=== PATIENT | female | born 1990 | race Caucasian/White ===

== ENCOUNTER 2016-05-26 13:11 | Outpatient (CLI) | payer OTHER ==
[~2016-05-26] VITALS: Ht 165.1 cm; Wt 67.3 kg
[2016-05-26] MEDS ORDERED: LACTATED RINGER'S 1000ML 500 ML IV ONE (13:37)
[2016-05-26] MEDS ORDERED: ACETAMINOPHEN 325 MG TAB PO PRN (13:45)
[2016-05-26] MEDS ORDERED: ONDANSETRON INJ 2 MG/ML 2 ML VIAL IV PRN (13:45)
[2016-05-26 13:59] LABS: URINE APPEARANCE CLOUDY (CLEAR); URINE BILIRUBIN NEG (NEG); URINE COLOR YELLOW; URINE EPITHELIAL CELL AUTO >30 /lpf (0-5); URINE NITRITE NEG (NEG); URINE PH 5.5 (4.5-7.5); URINE SPECIFIC GRAVITY 1.018 (1.000-1.030); UROBILINOGEN NEG (NEG); ZZUR CULT IF INDIC CLEAN CATCH YES
[2016-05-26] MEDS ORDERED: PATIENT'S HEIGHT AND/OR WEIGHT NEEDED SCH (14:00)
[2016-05-26 14:04] LABS: MANUAL MICROSCOPIC REQUIRED? NO; REVIEW REQ? YES
[2016-05-26 14:05] LABS: BASO % 0.1 %; BASO ABS # 0.01 K/uL (0-0.2); COMPLETE YES; EOS % 0.2 %; HEMATOCRIT 37.4 % (37-47); IG% 0.5 %; LYMPH % 6.7 %; LYMPH ABS # 0.86 K/uL (1.2-3.4); MEAN CELL VOLUME 92.6 fL (80-100); MEAN CORPUSCULAR HEMOGLOBIN 32.7 pg (25-34); MEAN CORPUSCULAR HGB CONC 35.3 g/dl (32-36); MEAN PLATELET VOLUME 11.6 fL (7.4-10.4); MONO % 6.3 %; NEUT % 86.2 %; PLATELET COUNT 179 K/uL (130-400); RED BLOOD COUNT 4.04 M/uL (4.2-5.4); WHITE BLOOD COUNT 12.77 K/uL (4.8-10.8)
[2016-05-26] MEDS: LACTATED RINGER'S 1000ML 1,000 ML IV SCH ×2 (14:12→16:28)
[2016-05-26 14:28] VITALS: BMI 24.7
[2016-05-26] MEDS ORDERED: METRONIDAZOLE 250 MG TAB PO SCH (14:30)
[2016-05-26] MEDS ORDERED: FLUCONAZOLE 100 MG TAB PO ONE (14:30)
[2016-05-26] MEDS ORDERED: ASPI1CHW12 (14:33)
[2016-05-26] MEDS ORDERED: PRENTAB26 PO (14:33)
[2016-05-26 14:37] LABS: CALCIUM 8.3 mg/dl (8.5-10.1); CREATININE 0.59 mg/dl (0.60-1.20); POTASSIUM 3.4 mmol/L (3.5-5.1)
[2016-05-26 14:39] LABS: ALB/GLOB RATIO 0.8 (0.9-2)
[2016-05-26 15:55] VITALS: Ht 165.1 cm; Wt 67.3 kg
--- NOTE | 2016-05-26 15:59 | DIAGNOSTIC IMAGING REPORT ---
Limited ultrasound LIMITED (US) CLINICAL HISTORY: Cervical length maternal cervical length TECHNIQUE: Ultrasound COMPARISON STUDY: None FINDINGS: 20 viable intrauterine . heart rate is identified for both fetuses. Placenta is seen at the fundal and right lateral aspect of the uterus. Estimated gestational age is 21 weeks 4 days. Maternal cervical length is 2.1 cm. IMPRESSION: 1. Twin, viable intrauterine . 2. Maternal cervical length 2.1 cm with cervix considered closed. Electronically signed by: Teo Pollard M.D. 05/26/2016 3:58 PM Dictated Date/Time: 05/26/2016 3:51 PM
[2016-05-26] MEDS ORDERED: MTR250 PO (17:47)
--- NOTE | 2016-05-26 17:49 | Discharge Instructions ---
Discharge Instructions Admission Reason for Admission: Check Pre-Term Labor Discharge Discharge Diagnosis / Problem: Coles/ Di twins, short cervix, vaginitis, suspected UTI Discharge Goals Goal(s): Continuing OB care Activity Recommendations Activity Limitations: as noted below Lifting Limitations: no more than 10 pounds Exercise/Sports Limitations: until after follow-up appointment May Resume Sexual Activity: after follow-up appointment Shower/Bathe: no limitations Driving or Machine Use: ACTIVITY RECOMMENDATIONS: See Labor Sheet. SPECIAL CARE INSTRUCTIONS: Call Doctor if: * Regular contractions every 5 minutes or greater than 4 contractions in one hour. * Bleeding * Water breaks or is leaking * Decreased movement * Fever >100.4 degrees F * Pain not relieved by routine measures or pain medication ordered. FOLLOW UP VISIT: Return to Labor and Delivery on for /call for appointment time . Follow-up Visit with: When: . Current Hospital Diet Patient's current hospital diet: Regular Diet Discharge Diet Recommended Diet: Regular Diet Pending Studies Studies pending at discharge: yes (URINE CULTURE, CALL TOMORROW FOR RESULTS) List of pending studies: Urine culture Medical Emergencies . Who to Call and When: Medical Emergencies: If at any time you feel your situation is an emergency, please call 911 immediately. . Non-Emergent Contact Non-Emergency issues call your: Surgeon Call Non-Emergent contact if: temperature is above 100.5, your pain is not controlled, your pain is worsening, you have any medication questions . . "Provider Documentation" section prepared by Saman De La O. VTE Core Measure Inpt VTE Proph given/why not?: Treatment not indicated
[2016-09-07] MEDS ORDERED: MTR600X PO (10:04)
[2016-09-07] MEDS ORDERED: CLC100 PO (10:04)
[2016-09-07] MEDS ORDERED: OXYC-57 PO (10:04)
[2016-09-07] MEDS ORDERED: LBT200 PO (10:04)
== END 2016-05-26 18:11 | disposition home or self-care (01) ==
LOC: C.OPB 13:11 → C.LD 13:11 → C.OPB 18:11
PROVIDERS: ATTEND Obstetrics & Gynecology
DX: O23.592 Infection of other part of genital tract in pregnancy, second trimester (principal); O34.42 Maternal care for other abnormalities of cervix, second trimester; O30.032 Twin pregnancy, monochorionic/diamniotic, second trimester; Z3A.21 21 weeks gestation of pregnancy

== ENCOUNTER 2016-05-31 13:48 | Outpatient (CLI) | payer OTHER ==
[~2016-05-31 13:48] MED LIST: ASPI1CHW12; MTR250 PO; PRENTAB26 PO
[2016-05-31] MEDS ORDERED: LACTATED RINGER'S 1000ML 500 ML IV ONE (14:09)
[2016-05-31] MEDS ORDERED: LACTATED RINGER'S 1000ML 1,000 ML IV SCH (14:09)
== END 2016-05-31 15:50 | disposition home or self-care (01) ==
LOC: C.LD 13:48 → C.OPB 13:48
PROVIDERS: ATTEND Obstetrics & Gynecology
DX: O62.9 Abnormality of forces of labor, unspecified (principal); O30.032 Twin pregnancy, monochorionic/diamniotic, second trimester; Z3A.21 21 weeks gestation of pregnancy

== ENCOUNTER 2016-07-07 13:05 | Outpatient (CLI) | payer OTHER ==
[~2016-07-07] VITALS: Ht 165.1 cm; Wt 73.6 kg
[2016-07-07 15:43] VITALS: Ht 165.1 cm; Wt 73.6 kg
--- NOTE | 2016-07-07 16:12 | Discharge Instructions ---
Discharge Instructions Date of Service Jul 07, 2016. Admission Reason for Admission: R/O Pre Term Labor Discharge Discharge Diagnosis / Problem: Twin preganncy Discharge Goals Goal(s): Continuing OB care Activity Recommendations Activity Limitations: as noted below Lifting Limitations: gradually increase as tolerated ACTIVITY RECOMMENDATIONS: See Labor Sheet. SPECIAL CARE INSTRUCTIONS: Call Doctor if: * Regular contractions every 5 minutes or greater than contractions in one hour. * Bleeding * Water breaks or is leaking * Decreased movement * Fever >100.4 degrees F * Pain not relieved by routine measures or pain medication ordered. FOLLOW UP VISIT: Return to Labor and Delivery on for /call for appointment time . Follow-up Visit with: When: . Current Hospital Diet Patient's current hospital diet: Regular OB Diet Discharge Diet Recommended Diet: Regular Diet Pending Studies Studies pending at discharge: no Medical Emergencies . Who to Call and When: Medical Emergencies: If at any time you feel your situation is an emergency, please call 911 immediately. . Non-Emergent Contact Non-Emergency issues call your: Specialist . . "Provider Documentation" section prepared by Elan Isaacs. VTE Core Measure Inpt VTE Proph given/why not?: Treatment not indicated
--- NOTE | 2016-07-07 16:17 | Progress Note ---
Progress Note Date of Service Jul 07, 2016. Progress Note Pt is with [place]-Di Twins seen in offe this Am and examined for PTL she was monitored for ctx and pelvic exam was ft/50% effaced Dr Hinojosa spoke to M and recommendation was as ff 1.L&D for prolonged monitoring 2 Recheck cervical exam in 2 hrs 3.D/C home if no change Pt was monitored, No cervical exam change, no ctx seen on [place] and FFN was negative Pt disch home with instructions
== END 2016-07-07 15:55 | disposition home or self-care (01) ==
LOC: UNDOADMIN 13:05 → C.LD 13:05 → C.OPB 13:05 → EDSTATUS 13:25 → C.OPB 15:55
PROVIDERS: ATTEND Obstetrics & Gynecology
DX: O60.02 Preterm labor without delivery, second trimester (principal); O30.032 Twin pregnancy, monochorionic/diamniotic, second trimester; Z3A.27 27 weeks gestation of pregnancy

== ENCOUNTER 2016-09-03 09:32 | Inpatient (IN) | payer OTHER ==
[2016-09-03] VITALS (9 sets, daily range): BP systolic 137–158; BP diastolic 84–104; PULSE 69–89; TEMP 36.4–36.8; O2SAT 95–97; Ht 165.1 cm; Wt 78.0 kg
[~2016-09-03] VITALS: Ht 165.1 cm; Wt 78.0 kg
[2016-09-03] MEDS ORDERED: LACTATED RINGER'S 1000ML 1,000 ML IV SCH (10:34)
[2016-09-03 10:37] LABS: ALT/SGPT 17 U/L (12-78); AST/SGOT 20 U/L (15-37); BLOOD UREA NITROGEN 11 mg/dl (7-18); BUN/CREATININE RATIO 14.6 (10-20); CALCIUM 8.4 mg/dl (8.5-10.1); CARBON DIOXIDE 18 mmol/L (21-32); CHLORIDE 110 mmol/L (98-107); CREATININE 0.74 mg/dl (0.60-1.20); GLUCOSE 79 mg/dl (70-99); POTASSIUM 3.5 mmol/L (3.5-5.1); SODIUM 140 mmol/L (136-145)
[2016-09-03 10:40] LABS: ALB/GLOB RATIO 0.6 (0.9-2); ALKALINE PHOSPHATASE 190 U/L (45-117)
[2016-09-03] MEDS ORDERED: CITRIC ACID/SODIUM CITRATE 15 ML UDC PO ONE (10:45)
[2016-09-03] MEDS ORDERED: PRENTAB26 PO (10:54)
[2016-09-03 10:56] LABS: HEMATOCRIT 39.9 % (37-47); MEAN CORPUSCULAR HEMOGLOBIN 32.6 pg (25-34); MEAN CORPUSCULAR HGB CONC 34.3 g/dl (32-36); MEAN PLATELET VOLUME 13.3 fL (7.4-10.4); PLATELET COUNT 137 K/uL (130-400); PLT ESTIMATE DECREASED; WHITE BLOOD COUNT 9.17 K/uL (4.8-10.8)
[2016-09-03] MEDS ORDERED: CEFOXITIN IV 2,000 MG in DEXTROSE 5% 50ML 50 ML IV SCH (11:00)
[2016-09-03 11:33] LABS: INR 0.9 (0.9-1.1); PROTHROMBIN TIME (PATIENT) 9.3 SECONDS (9.0-12.0)
--- NOTE | 2016-09-03 11:57 | HISTORY & PHYSICAL EXAMINATION ---
DATE OF ADMISSION: 09/03/2016 HISTORY OF PRESENT ILLNESS: This is a 26-year-old G3, P2, due date 10/02/2016 making that 35 weeks and 6 days today, the patient has had twin , monochorionic diamniotic. She has been seen and followed by maternal medicine through the office. Her had been complicated by a diagnosis of mild preeclampsia starting at 33 weeks. 24hr urine has been over 300mg The patient received betamethasone series on 08/08/2016 and 08/09/2016. Her Mild preeclampsia has been managed as an outpatient. She was doing daily blood pressures, NSTs and biophysicals in the office. Her labs have been normal. The patient today called with complaints of elevated blood pressure. She was brought into labor and delivery where her blood pressure was confirmed to be elevated. Blood pressures have been in the 160-170s/105- 110.She has no headache, SOB, visual changes or RUQ pain. we have documented more that 2 elevated Bp's inthe severe range upgrading her diagnosis to severe preeclampsia Decision therefore is to deliver infants today. The original plan had been to continue to do expectant management and deliver her at 37 weeks, which is what is consistent with treatment for mild preeclampsia. However, with worsening of her blood pressure, decision is made to deliver the patient today. Labs including platelets and LFTs are normal today. Both infants A and B are cephalic. We discussed options of TOLAC as well as a with the patient. The patient has had discussion with her and both have agreed to have a section performed. We discussed the risks of section including infection, bleeding, and damage to adjacent structures. The patient understands the risk and has signed the consent. Plan therefore is to proceed with section. COURSE: As dictated above. LABS: Blood type A positive, antibody negative. PAST MEDICAL HISTORY: 1. History of scoliosis. 2. History of depression. 3. History of ovarian cyst. 4. History of condyloma. PAST SURGICAL HISTORY: History of dental surgery, and history of section. FAMILY HISTORY: Noncontributory. OBSTETRICS/ GYNECOLOGY HISTORY: The patient had a in January 2011 and____ section in November 2012. ALLERGIES: THE PATIENT IS ALLERGIC TO SULFA DRUGS. FAMILY HISTORY: Noncontributory. SOCIAL HISTORY: The patient denies tobacco, drug or alcohol use. PHYSICAL EXAMINATION: GENERAL: Well-developed, well-nourished white female, in no acute distress. VITAL SIGNS: Blood pressure is in the 160-170 range over 110s. HEART: S1, S2, regular rhythm and rate. LUNGS: Clear to auscultation bilaterally. ABDOMEN: Gravid. PELVIC: Pelvic exam shows she is fingertip, thick and posterior. EXTREMITIES: No cyanosis, clubbing or edema. ASSESSMENT AND PLAN: A 26-year-old G3, P2 at 35 weeks and 6 days status post twin gestation, monochorionic diamniotic. Severe preeclampsia. The patient is a previous section. The patient agreed to undergo repeat section. Consent is obtained and signed. We discussed the risks of surgery as stated under consent. ARIS
[2016-09-03] MEDS ORDERED: OXYTOCIN INJ 10 UNITS/ML VIAL IM ONE (12:13)
[2016-09-03] MEDS ORDERED: NALOXONE HCL INJ 0.08 MG in SYRINGE 1.8 ML IV PRN (13:06)
[2016-09-03] MEDS ORDERED: SODIUM CHLORIDE 0.9% 1000ML 1,000 ML IV PRN (13:06)
[2016-09-03] MEDS ORDERED: LACTATED RINGER'S 1000ML 500 ML IV PRN (13:06)
--- NOTE | 2016-09-03 13:08 | Anesthesiology Progress Note ---
Anesthesia Post Op Note Date & Time Sep 03, 2016 at 13:08 Notes Mental Status: alert / awake / arousable, participated in evaluation Pt Amnestic to Procedure: No (recall as expected) Nausea / Vomiting: adequately controlled Pain: adequately controlled Airway Patency, RR, SpO2: stable & adequate BP & HR: stable & adequate Hydration State: stable & adequate Neuraxial Anesthesia: was administered, sensory block is resolving Anesthetic Complications: no major complications apparent Pt had C/S under spinal. Her anesthetic course was unremarkable. Post-op vitals : BP 122/79, HR 71, RR 14, SpO2 96% on RA, T 36.3.
[2016-09-03] MEDS ORDERED: SUPERCREAM 0.870 % 15GM JAR EXT PRN (13:15)
[2016-09-03] MEDS ORDERED: DiphenhydrAMINE HCL 50 MG/ML VIAL IV PRN (13:15)
[2016-09-03] MEDS ORDERED: EpHEDrine SULFATE INJ 50 MG/ML AMP IV PRN (13:15)
[2016-09-03] MEDS ORDERED: MoRPHine SULFATE PF 1 MG/ML 10 ML AMP/VIAL EPI PRN (13:15)
[2016-09-03] MEDS ORDERED: BENZOCAINE 20% AER SPR 82.5 GM CAN EXT PRN (13:15)
[2016-09-03] MEDS ORDERED: PROMETHAZINE HCL INJ 25 MG in SODIUM CHLORIDE 0.9% 50ML 50 ML IV PRN (13:15)
[2016-09-03] MEDS ORDERED: NALOXONE HCL 0.4 MG/1 ML VIAL/CARP IV PRN (13:15)
[2016-09-03] MEDS ORDERED: NALBUPHINE HCL INJ 10 MG/ML AMP IV PRN (13:15)
[2016-09-03] MEDS ORDERED: LANOLIN OINT EXT PRN ×2 (13:15)
[2016-09-03] MEDS ORDERED: MEPERIDINE HCL 25 MG/ML CARP IV PRN (13:15)
[2016-09-03] MEDS ORDERED: SENNA 8.6 MG TAB PO PRN (13:15)
[2016-09-03] MEDS ORDERED: NO NARCOTICS OR SEDATIVES SCH (13:15)
[2016-09-03] MEDS ORDERED: MoRPHine SULFATE 2 MG/ML CARP IV PRN (13:15)
[2016-09-03] MEDS ORDERED: HYDROCORTISONE ACETATE 25 MG SUPP PR PRN (13:15)
[2016-09-03] MEDS: OXYTOCIN INJ 20 UNITS in LACTATED RINGER'S 1000ML 1,000 ML IV SCH ×2 (13:51→22:06)
--- NOTE | 2016-09-03 13:54 | OPERATIVE REPORT ---
DATE OF OPERATION: 09/03/2016 DELIVERY NOTE DATE OF DELIVERY: 09/03/2016. INDICATION FOR SURGERY: This is a 26-year-old with mono diamniotic twins, previous history section, severe preeclampsia. PREOPERATIVE DIAGNOSES: 1. Twin gestation at 35 and 6 weeks mono-di twins. 2. Severe preeclampsia. 3. Previous section, wishes to have repeat . POSTOPERATIVE DIAGNOSIS: Same. PROCEDURE: Repeat c/section. SURGEON: Dr. Elan Isaacs. JEWEL BEARING POLISHER: Dr. Dick. ESTIMATED BLOOD LOSS: 600 mL. URINE OUTPUT: 350 mL clear urine at end of the procedure. IV FLUIDS: 1800 mL. ANESTHESIA: Spinal. FINDINGS: Two live infant females, both in cephalic presentation, weight and is in the pediatric records. The abdominal and pelvic exam were unremarkable. Both adnexa appeared grossly normal. Uterus appeared grossly normal as well. COMPLICATIONS: None. DRAINS: Sotelo catheter. DISPOSITION: Stable in recovery room. PATHOLOGY: Placenta. PROCEDURE: The patient was taken to the operating room where she was prepped and draped in normal sterile fashion after time out was called. A Pfannenstiel incision was made and carried down to the fascia. Fascia was incised in the midline and extended laterally on both sides. The rectus abdominus muscle was identified and the peritoneum was identified as well. The peritoneum was entered sharply. Once inside the abdomen, an Danny retractor was placed in the abdomen for retraction. The vesicouterine peritoneum was sharply dissected off the lower segment of the uterus. A transverse incision was made in lower segment of the uterus. Baby A was delivered in cephalic presentation. Baby A also had a right hand compound presentation, was delivered without any difficulty. Cord was clamped and cut and handed over to the waiting pediatric team. Amniotomy was performed on baby B and also delivered in cephalic presentation. Placenta was manually removed and sent to pathology for pathologic analysis. The uterus was exteriorized and cleared of all clots and debris. Uterus was closed in 2 layers using Vicryl stitch. Uterus was returned into the abdomen after copious amount of irrigation was used to irrigate the abdomen. The plain suture was used to close the bladder flap. The peritoneum was closed in a running fashion using plain suture. [id number] sutures were used to reapproximate the rectus abdominis muscle. The fascia was closed in a running fashion using Vicryl stitch. The subQ space was closed with 2-0 plain and skin closed with 4-0 Monocryl suture. All instruments were removed from the abdomen including sponges and needles and retractors and accounted for x2. Babies and mother are doing well in recovery. I attest to the content of the Intraoperative Record and any orders documented therein. Any exceptions are noted below. OMARD
[2016-09-03] MEDS: KETOROLAC TROMETHAMINE 30 MG/ML VIAL IV. PRN ×2 (15:14→22:07)
[2016-09-03] MEDS: ONDANSETRON INJ 2 MG/ML 2 ML VIAL IV PRN ×2 (17:43→23:41)
[2016-09-03] MEDS: SIMETHICONE 80 MG CHEW PO SCH ×2 (17:44→20:16)
[2016-09-03] MEDS: DOCUSATE SODIUM 100 MG CAP PO SCH (20:16)
[2016-09-04] VITALS (13 sets, daily range): BP systolic 128–155; BP diastolic 84–92; PULSE 66–101; TEMP 36.3–36.9; O2SAT 95–96
[2016-09-04] MEDS: KETOROLAC TROMETHAMINE 30 MG/ML VIAL IV. PRN (05:47)
[2016-09-04] MEDS ORDERED: MEPERIDINE HCL 50 MG/ML CARP IV PRN ×2 (06:00)
[2016-09-04] MEDS ORDERED: KETOROLAC TROMETHAMINE 30 MG/ML VIAL IV. PRN (06:00)
[2016-09-04] MEDS ORDERED: DC INTRASPINAL MORPHINE SCH (06:00)
[2016-09-04] MEDS ORDERED: DiphenhydrAMINE HCL 50 MG/ML VIAL IV PRN (06:00)
[2016-09-04] MEDS ORDERED: ZOLPIDEM TARTRATE 5 MG TAB PO PRN (06:00)
[2016-09-04] MEDS ORDERED: ONDANSETRON INJ 2 MG/ML 2 ML VIAL IV PRN (06:00)
[2016-09-04] MEDS ORDERED: PROMETHAZINE HCL INJ 25 MG in SODIUM CHLORIDE 0.9% 50ML 50 ML IV PRN (06:00)
[2016-09-04 07:07] LABS: HEMATOCRIT 36.2 % (37-47); MEAN CELL VOLUME 94.8 fL (80-100); MEAN CORPUSCULAR HEMOGLOBIN 32.7 pg (25-34); MEAN CORPUSCULAR HGB CONC 34.5 g/dl (32-36); MEAN PLATELET VOLUME 12.8 fL (7.4-10.4); PLATELET COUNT 123 K/uL (130-400); RED BLOOD COUNT 3.82 M/uL (4.2-5.4); WHITE BLOOD COUNT 12.28 K/uL (4.8-10.8)
[2016-09-04 07:11] LABS: BASO % 0.1 %; BASO ABS # 0.01 K/uL (0-0.2); COMPLETE YES; EOS % 0.7 %; IG% 0.4 %; LARGE PLATELETS 1+; LYMPH % 18.8 %; LYMPH ABS # 2.31 K/uL (1.2-3.4); MONO % 6.5 %; NEUT % 73.5 %
--- NOTE | 2016-09-04 07:28 | Surgery Progress Note ---
Surgery Progress Note Date of Service Sep 04, 2016. Subjective Post OP Day: 1 + feeling well, + ambulating, + flatus, + pain controlled, + diet (Tolerating PO food and meds), No complaints, No chest pain, No SOB, No bowel movement, No using EDITORIAL INTERN, No nausea, No vomiting Objective Vital Signs: Date Time Temp Pulse Resp B/P (MAP) Pulse Ox O2 Delivery O2 Flow Rate FiO2 09/04/16 06:00 18 96 09/04/16 05:00 18 96 09/04/16 04:00 18 95 09/04/16 03:15 36.6 71 18 137/91 (106) 95 Room Air 09/04/16 03:00 18 95 09/04/16 02:00 18 95 09/04/16 01:00 18 95 09/04/16 00:00 16 95 09/03/16 23:30 95 Room Air 09/03/16 23:30 36.8 69 18 143/90 (107) 95 Room Air 09/03/16 23:00 16 95 09/03/16 20:20 36.4 80 18 137/92 (107) 96 Room Air 09/03/16 20:00 18 96 09/03/16 19:00 18 97 09/03/16 18:00 20 96 09/03/16 17:00 89 16 143/94 (110) 95 Room Air 09/03/16 17:00 16 95 09/03/16 16:30 70 16 151/84 (106) 96 Room Air 09/03/16 16:00 36.4 76 18 158/104 (122) 96 Room Air 09/03/16 16:00 Room Air 09/03/16 16:00 18 96 09/03/16 16:00 Room Air General Appearance: WD/WN, no apparent distress Head: normocephalic, atraumatic Neck: supple, no adenopathy, thyroid normal, no JVD, no carotid bruits, trachea midline Respiratory/Chest: chest non-tender, lungs clear, normal breath sounds, no respiratory distress, no accessory muscle use Cardiovascular: regular rate, rhythm, no edema, no gallop, no JVD, no murmur Abdomen: normal bowel sounds, non tender, non distended, soft, no organomegaly , no pulsatile mass Incision(s): clean, dry, intact, no erythema, no drainage Extremities: normal range of motion, non-tender, normal inspection, no pedal edema, no calf tenderness, normal capillary refill, pelvis stable Laboratory Results: Results Past 24 Hours Test 09/03/16 10:10 09/03/16 10:47 09/04/16 06:42 Range/Units White Blood Count 9.17 12.28 4.8-10.8 K/uL Red Blood Count 4.20 3.82 4.2-5.4 M/uL Hemoglobin 13.7 12.5 12.0-16.0 g/dL Hematocrit 39.9 36.2 37-47 % Mean Corpuscular Volume 95.0 94.8 80-100 fL Mean Corpuscular Hemoglobin 32.6 32.7 25-34 pg Mean Corpuscular Hemoglobin Concent 34.3 34.5 32-36 g/dl RDW Standard Deviation 45.8 44.8 36.4-46.3 fL RDW Coefficient of Variation 13.3 13.1 11.5-14.5 % Platelet Count 137 123 130-400 K/uL Mean Platelet Volume 13.3 12.8 7.4-10.4 fL Platelet Estimate DECREASED Sodium Level 140 136-145 mmol/L Potassium Level 3.5 3.5-5.1 mmol/L Chloride Level 110 98-107 mmol/L Carbon Dioxide Level 18 21-32 mmol/L Anion Gap 12.0 3-11 mmol/L Blood Urea Nitrogen 11 7-18 mg/dl Creatinine 0.74 0.60-1.20 mg/dl Estimated GFR () 127.8 Estimated GFR (Non- 110.3 BUN/Creatinine Ratio 14.6 10-20 Random Glucose 79 70-99 mg/dl Calcium Level 8.4 8.5-10.1 mg/dl Total Bilirubin 0.2 0.2-1 mg/dl Aspartate Amino Transf (AST/SGOT) 20 15-37 U/L Alanine Aminotransferase (ALT/SGPT) 17 12-78 U/L Alkaline Phosphatase 190 45-117 U/L Lactate Dehydrogenase 202 84-246 U/L Total Protein 6.2 6.4-8.2 gm/dl Albumin 2.4 3.4-5.0 gm/dl Globulin 3.8 2.5-4.0 gm/dl Albumin/Globulin Ratio 0.6 0.9-2 Prothrombin Time 9.3 9.0-12.0 SECONDS Prothromb Time International Ratio 0.9 0.9-1.1 Activated Partial Thromboplast Time 27.1 21.0-31.0 SECONDS Partial Thromboplastin Ratio 1.0 Neutrophils (%) (Auto) 73.5 % Lymphocytes (%) (Auto) 18.8 % Monocytes (%) (Auto) 6.5 % Eosinophils (%) (Auto) 0.7 % Basophils (%) (Auto) 0.1 % Neutrophils # (Auto) 9.03 1.4-6.5 K/uL Lymphocytes # (Auto) 2.31 1.2-3.4 K/uL Monocytes # (Auto) 0.80 0.11-0.59 K/uL Eosinophils # (Auto) 0.08 0-0.5 K/uL Basophils # (Auto) 0.01 0-0.2 K/uL Immature Granulocyte % (Auto) 0.4 % Immature Granulocyte # (Auto) 0.05 0.00-0.02 K/uL Large Platelets 1+ Assessment & Plan repeat C/sec twin gestation severe preclampsia Day #1 pt doing well continue day #1 care
[2016-09-04] MEDS: SIMETHICONE 80 MG CHEW PO SCH ×4 (07:59→19:12)
[2016-09-04] MEDS: DOCUSATE SODIUM 100 MG CAP PO SCH ×2 (08:00→19:12)
[2016-09-04] MEDS: FERROUS SULFATE 325 MG TAB PO SCH (08:00)
[2016-09-04 08:09] LABS: ALB/GLOB RATIO 0.5 (0.9-2); BUN/CREATININE RATIO 11.7 (10-20); CREATININE 0.65 mg/dl (0.60-1.20); POTASSIUM 3.7 mmol/L (3.5-5.1)
[2016-09-04 08:36] LABS: CALCIUM 7.8 mg/dl (8.5-10.1)
[2016-09-04] MEDS: OXYCODONE/ACETAMINOPHEN 5-325 TAB PO PRN ×4 (10:21→23:02)
[2016-09-04] MEDS: IBUPROFEN 600 MG TAB PO PRN ×4 (10:21→23:00)
[2016-09-04] MEDS: MAGNESIUM HYDROXIDE SUSP 30 ML UDC PO PRN (21:00)
[2016-09-04] MEDS ORDERED: BISACODYL 5 MG TABEC PO ONE (22:00)
[2016-09-05] MEDS: IBUPROFEN 600 MG TAB PO PRN ×4 (03:09→17:24)
[2016-09-05] MEDS: OXYCODONE/ACETAMINOPHEN 5-325 TAB PO PRN ×4 (03:10→19:43)
[2016-09-05 07:35] VITALS: BP 130/80; PULSE 100; TEMP 36.6; O2SAT 99
[2016-09-05] MEDS: MAGNESIUM HYDROXIDE SUSP 30 ML UDC PO PRN (08:24)
[2016-09-05] MEDS: DOCUSATE SODIUM 100 MG CAP PO SCH ×2 (08:24→19:42)
[2016-09-05] MEDS: FERROUS SULFATE 325 MG TAB PO SCH (08:24)
[2016-09-05] MEDS: SIMETHICONE 80 MG CHEW PO SCH ×4 (08:24→19:42)
--- NOTE | 2016-09-05 08:46 | OB/GYN Progress Note ---
MULTIMEDIA INSTRUCTIONAL DESIGNER Progress Note Date of Service Sep 05, 2016. Subjective conversation w/ patient, physical exam Ambulation: ambulating normally Voiding: no voiding problems Passing Gas: Yes Diet Tolerance: Regular Diet Lochia: Small Pain: 06/03 Notes: Doing well, no concerns. Pain well controlled. Lochia minimal. Tolerating regular diet. Ambulating without difficulty. Objective Vital Signs Date Time Temp Pulse Resp B/P (MAP) Pulse Ox O2 Delivery O2 Flow Rate FiO2 09/04/16 23:30 36.3 81 20 141/84 (103) 09/04/16 21:00 101 20 150/90 (110) 09/04/16 16:51 36.6 80 20 155/92 (113) 09/04/16 12:05 36.9 88 20 150/85 (106) Physical Exam General Appearance: WELL-APPEARING Respiratory/Chest: chest non-tender, lungs clear Cardiovascular: regular rate, rhythm Abdomen: normal bowel sounds, soft Fundus: Firm Incision Description: Clean, Dry & Intact Extremities: normal range of motion, non-tender, no calf tenderness Laboratory Results Last 24 Hours Test 09/05/16 06:05 Hemoglobin 11.9 g/dL Hematocrit 36.0 % Assessment and Plan Post-Op Day Number: 2 Continue Routine Care: -Continue routine postop care -Advance activity as tolerated. -Anticipate d/c home tomorrow AM.
[2016-09-05 11:10] VITALS: BP 139/85; PULSE 107; TEMP 36.4; O2SAT 99
[2016-09-05] MEDS: BISACODYL 10 MG SUPP PR PRN (12:34)
[2016-09-05 16:10] VITALS: BP 147/99; PULSE 92; TEMP 37.4
[2016-09-05 23:40] VITALS: BP 153/97; PULSE 94
[2016-09-06] VITALS (12 sets, daily range): BP systolic 122–183; BP diastolic 71–113; PULSE 76–102; TEMP 36.7–37; O2SAT 96–98
[2016-09-06] MEDS: IBUPROFEN 600 MG TAB PO PRN ×5 (01:27→22:40)
[2016-09-06] MEDS: OXYCODONE/ACETAMINOPHEN 5-325 TAB PO PRN ×3 (01:28→22:41)
[2016-09-06] MEDS ORDERED: LABETALOL HCL 100 MG TAB PO SCH (01:30)
--- NOTE | 2016-09-06 07:03 | Progress Note ---
Progress Note Date of Service Sep 06, 2016. Progress Note Called overnight for elevated BP's and patient not feeling well. Labetalol 100 mg given. BP's did improve to 140's/90's. This morning again patient began feeling the same. BP's elevated again 160's/110's. Patient evaluated. Denies CARLOS or changes in vision but feels as if everything is in slow motion. Incision is c /d/i, bleeding is minimal. PIH labs ordered. labetalol 200 mg TID ordered. Will continue to monitor closely.
[2016-09-06] MEDS: LABETALOL HCL 200 MG TAB PO SCH ×3 (07:34→20:21)
[2016-09-06 07:37] LABS: BASO % 0.1 %; BASO ABS # 0.01 K/uL (0-0.2); EOS % 0.9 %; HEMATOCRIT 33.3 % (37-47); IG% 0.7 %; MEAN CELL VOLUME 95.7 fL (80-100); MEAN PLATELET VOLUME 11.8 fL (7.4-10.4); MONO % 5.9 %; NEUT % 74.4 %; PLATELET COUNT 148 K/uL (130-400); RED BLOOD COUNT 3.48 M/uL (4.2-5.4); WHITE BLOOD COUNT 9.99 K/uL (4.8-10.8)
[2016-09-06 07:51] LABS: COMPLETE YES; MEAN CORPUSCULAR HGB CONC 34.5 g/dl (32-36)
[2016-09-06 07:55] LABS: CALCIUM 8.1 mg/dl (8.5-10.1); CREATININE 0.65 mg/dl (0.60-1.20); POTASSIUM 3.9 mmol/L (3.5-5.1)
[2016-09-06] MEDS: FERROUS SULFATE 325 MG TAB PO SCH (08:00)
[2016-09-06] MEDS: DOCUSATE SODIUM 100 MG CAP PO SCH ×2 (08:55→20:17)
[2016-09-06] MEDS: SIMETHICONE 80 MG CHEW PO SCH ×4 (08:56→20:18)
--- NOTE | 2016-09-06 09:25 | Surgery Progress Note ---
Surgery Progress Note Date of Service Sep 06, 2016. Subjective Post OP Day: 3 + feeling well, + ambulating, + flatus, + pain controlled, + diet (Tolerating Po food and meds), No complaints, No chest pain, No SOB, No bowel movement, No using SCREW MACHINE TOOL SETTER, No nausea, No vomiting Objective Vital Signs: Date Time Temp Pulse Resp B/P (MAP) Pulse Ox O2 Delivery O2 Flow Rate FiO2 09/06/16 06:30 167/110 (129) 09/06/16 03:35 76 148/78 (101) 09/06/16 02:50 96 156/90 (112) 09/06/16 02:15 102 148/103 (118) 09/06/16 01:46 165/112 (129) 09/06/16 01:28 37.0 09/06/16 01:28 183/113 (136) 09/05/16 23:40 94 18 153/97 (115) Room Air 09/05/16 23:40 Room Air 09/05/16 16:10 Room Air 09/05/16 16:10 37.4 92 20 147/99 (115) Room Air 09/05/16 11:10 36.4 107 19 139/85 (103) 99 Room Air General Appearance: WD/WN, no apparent distress Head: normocephalic, atraumatic Neck: supple, no adenopathy, thyroid normal, no JVD, no carotid bruits, trachea midline Respiratory/Chest: chest non-tender, lungs clear, normal breath sounds, no respiratory distress, no accessory muscle use Cardiovascular: regular rate, rhythm, no edema, no gallop, no JVD, no murmur Abdomen: normal bowel sounds, non tender, non distended, soft, no organomegaly , no pulsatile mass Incision(s): clean, dry, intact, no erythema, no drainage Extremities: normal range of motion, non-tender, normal inspection, no pedal edema, no calf tenderness, normal capillary refill, pelvis stable Laboratory Results: Results Past 24 Hours Test 09/06/16 07:27 Range/Units White Blood Count 9.99 4.8-10.8 K/uL Red Blood Count 3.48 4.2-5.4 M/uL Hemoglobin 11.5 12.0-16.0 g/dL Hematocrit 33.3 37-47 % Mean Corpuscular Volume 95.7 80-100 fL Mean Corpuscular Hemoglobin 33.0 25-34 pg Mean Corpuscular Hemoglobin Concent 34.5 32-36 g/dl Platelet Count 148 130-400 K/uL Mean Platelet Volume 11.8 7.4-10.4 fL Neutrophils (%) (Auto) 74.4 % Lymphocytes (%) (Auto) 18.0 % Monocytes (%) (Auto) 5.9 % Eosinophils (%) (Auto) 0.9 % Basophils (%) (Auto) 0.1 % Neutrophils # (Auto) 7.43 1.4-6.5 K/uL Lymphocytes # (Auto) 1.80 1.2-3.4 K/uL Monocytes # (Auto) 0.59 0.11-0.59 K/uL Eosinophils # (Auto) 0.09 0-0.5 K/uL Basophils # (Auto) 0.01 0-0.2 K/uL RDW Standard Deviation 46.2 36.4-46.3 fL RDW Coefficient of Variation 13.4 11.5-14.5 % Immature Granulocyte % (Auto) 0.7 % Immature Granulocyte # (Auto) 0.07 0.00-0.02 K/uL Sodium Level 142 136-145 mmol/L Potassium Level 3.9 3.5-5.1 mmol/L Chloride Level 109 98-107 mmol/L Carbon Dioxide Level 22 21-32 mmol/L Anion Gap 11.0 3-11 mmol/L Blood Urea Nitrogen 9 7-18 mg/dl Creatinine 0.65 0.60-1.20 mg/dl Est Creatinine Clear Calc Drug Dose 133.1 ml/min Estimated GFR () 140.0 Estimated GFR (Non- 120.8 BUN/Creatinine Ratio 14.0 10-20 Random Glucose 84 70-99 mg/dl Calcium Level 8.1 8.5-10.1 mg/dl Aspartate Amino Transf (AST/SGOT) 32 15-37 U/L Alanine Aminotransferase (ALT/SGPT) 19 12-78 U/L Assessment & Plan repeat C/sec twin gestation severe preclampsia Day #1 pt doing well continue day #1 care repeat C/sec twin gestation severe preclampsia Day #3 pt doing well On labetalol for elevated BPs will monitor BP for 24 hrs anticipate disch tomorrow
[2016-09-06] MEDS: BISACODYL 10 MG SUPP PR PRN (20:19)
[2016-09-07] VITALS: BP 136/81; PULSE 85; TEMP 36.6
[2016-09-07] MEDS: OXYCODONE/ACETAMINOPHEN 5-325 TAB PO PRN (07:30)
[2016-09-07] MEDS: IBUPROFEN 600 MG TAB PO PRN (07:30)
[2016-09-07 07:40] VITALS: O2SAT 97
[2016-09-07 07:45] VITALS: BP 134/90; PULSE 85; TEMP 36.5; O2SAT 97
[2016-09-07] MEDS: FERROUS SULFATE 325 MG TAB PO SCH (08:47)
[2016-09-07] MEDS: SIMETHICONE 80 MG CHEW PO SCH ×2 (08:47→11:37)
[2016-09-07] MEDS: DOCUSATE SODIUM 100 MG CAP PO SCH (08:47)
[2016-09-07] MEDS: LABETALOL HCL 200 MG TAB PO SCH (08:47)
--- NOTE | 2016-09-07 10:03 | OB/GYN Progress Note ---
BELT SEWER Progress Note Date of Service: Sep 07, 2016. Patient is seen and examined. She feels well, no complaints. Likes to be d/c'd Pain is under control with oral meds. Ambulating without dizziness Voiding without difficulty Tolerating regular diet with out N&V Flatus + BM + Bleeding is minimal No fever/ chills/ CP/ SOB/ N&V/ Leg pain/ CARLOS Breast feeding her twins without problems Date Time Temp Pulse Resp B/P (MAP) Pulse Ox O2 Delivery O2 Flow Rate FiO2 09/07/16 07:45 36.5 85 13 134/90 (105) 97 Room Air 09/07/16 07:40 97 Room Air 09/07/16 00:00 36.6 85 18 136/81 (99) Room Air 09/07/16 00:00 Room Air 09/06/16 20:20 146/88 (107) 09/06/16 16:40 Room Air 09/06/16 16:40 36.8 96 16 128/84 (99) Room Air 09/06/16 14:15 149/91 (110) 09/06/16 11:15 36.9 93 16 144/84 (104) 96 Room Air Test 07/07/16 00:00 09/03/16 10:10 09/03/16 10:47 09/04/16 06:42 Fibronectin NEGATIVE White Blood Count 9.17 12.28 H Red Blood Count 4.20 3.82 L Mean Corpuscular Volume 95.0 94.8 Mean Corpuscular Hemoglobin 32.6 32.7 Mean Corpuscular Hemoglobin Concent 34.3 34.5 RDW Standard Deviation 45.8 44.8 RDW Coefficient of Variation 13.3 13.1 Platelet Count 137 123 L Mean Platelet Volume 13.3 H 12.8 H Platelet Estimate DECREASED L Sodium Level 140 Potassium Level 3.5 Chloride Level 110 H Carbon Dioxide Level 18 L Anion Gap 12.0 H Blood Urea Nitrogen 11 Creatinine 0.74 Estimated GFR () 127.8 Estimated GFR (Non- 110.3 BUN/Creatinine Ratio 14.6 Random Glucose 79 Calcium Level 8.4 L Total Bilirubin 0.2 Aspartate Amino Transferase (AST) 20 Alanine Aminotransferase (ALT) 17 Alkaline Phosphatase 190 H Lactate Dehydrogenase 202 Total Protein 6.2 L Albumin 2.4 L Globulin 3.8 Albumin/Globulin Ratio 0.6 L Prothrombin Time 9.3 Prothrombin Time INR 0.9 PTT 27.1 Partial Thromboplastin Ratio 1.0 Hemoglobin 12.5 Hematocrit 36.2 L Neutrophils (%) (Auto) 73.5 Lymphocytes (%) (Auto) 18.8 Monocytes (%) (Auto) 6.5 Eosinophils (%) (Auto) 0.7 Basophils (%) (Auto) 0.1 Neutrophils # (Auto) 9.03 H Lymphocytes # (Auto) 2.31 Monocytes # (Auto) 0.80 H Eosinophils # (Auto) 0.08 Basophils # (Auto) 0.01 Immature Granulocyte % (Auto) 0.4 Immature Granulocyte # (Auto) 0.05 H Large Platelets 1+ Test 09/04/16 07:40 09/05/16 06:05 09/06/16 07:27 Sodium Level 137 142 Potassium Level 3.7 3.9 Chloride Level 105 109 H Carbon Dioxide Level 22 22 Anion Gap 10.0 11.0 Blood Urea Nitrogen 8 9 Creatinine 0.65 0.65 Est Creatinine Clear Calc Drug Dose 133.1 133.1 Estimated GFR () 140.0 140.0 Estimated GFR (Non- 120.8 120.8 BUN/Creatinine Ratio 11.7 14.0 Random Glucose 69 L 84 Calcium Level 7.8 L 8.1 L Total Bilirubin 0.3 Aspartate Amino Transferase (AST) 25 32 Alanine Aminotransferase (ALT) 16 19 Alkaline Phosphatase 128 H Total Protein 4.8 #L Albumin 1.7 L Globulin 3.1 Albumin/Globulin Ratio 0.5 L Hemoglobin 11.9 L 11.5 L Hematocrit 36.0 L 33.3 L White Blood Count 9.99 Red Blood Count 3.48 L Mean Corpuscular Volume 95.7 Mean Corpuscular Hemoglobin 33.0 Mean Corpuscular Hemoglobin Concent 34.5 Platelet Count 148 Mean Platelet Volume 11.8 H Neutrophils (%) (Auto) 74.4 Lymphocytes (%) (Auto) 18.0 Monocytes (%) (Auto) 5.9 Eosinophils (%) (Auto) 0.9 Basophils (%) (Auto) 0.1 Neutrophils # (Auto) 7.43 H Lymphocytes # (Auto) 1.80 Monocytes # (Auto) 0.59 Eosinophils # (Auto) 0.09 Basophils # (Auto) 0.01 RDW Standard Deviation 46.2 RDW Coefficient of Variation 13.4 Immature Granulocyte % (Auto) 0.7 Immature Granulocyte # (Auto) 0.07 H PE: General: Alert, orientedx3, NAD CVS: S1S2 RRR Lungs; CTAB Abd: soft, NT, fundus firm, below Umbilicus Incision: Clean, dry, intact Perineum intact, Lochia rubra minimal Ext; NT, no edema AP: 26 yo s/p RC Section for twins and preeclampsia, pod# 4 VSS Afebrile doing well On PO labetalol, BP stable Continue routine postop care Encourage ambulation, PO intake All questions were answered D/C home , f/u in office
[2016-09-07] MEDS ORDERED: LBT200 PO (10:04)
[2016-09-07] MEDS ORDERED: MTR600X PO (10:04)
[2016-09-07] MEDS ORDERED: OXYC-57 PO (10:04)
[2016-09-07] MEDS ORDERED: CLC100 PO (10:04)
--- NOTE | 2016-09-07 10:05 | Discharge Instructions ---
Discharge Instructions Date of Service Sep 07, 2016. Admission Reason for Admission: Blood Pressure Check Discharge Discharge Diagnosis / Problem: Repeat Csection Discharge Goals Goal(s): Routine recovery after Medications Continue Dispensed Medications: supercream, dermaplast, lansinoh Activity Recommendations Activity Limitations: as noted below Lifting Limitations: no more than 10 pounds Exercise/Sports Limitations: until after follow-up appointment May Resume Sexual Activity: after follow-up appointment Shower/Bathe: keep incision dry Driving or Machine Use: ACTIVITY RECOMMENDATIONS: * Gradual return to full activity over the next 2-3 weeks. * No lifting - nothing heavier than baby over the next 2-3 weeks. * Do not engage in vigorous exercise, sexual activity or sports until cleared by your physician. * Do not drive or operate any motorized equipment until cleared by your physician. * You may shower/bathe daily. BREAST CARE: If you are not breast feeding: * Wear a supportive bra 24 hours a day for one to two weeks. * Avoid stimulating your breasts and nipples as much as possible during the first few weeks after delivery. * When taking a shower, have the warm water hit your back, not breasts. * When your breasts feel full, apply ice packs. Usually three to four times a day helps ease the discomfort. * Take a mild pain medication (Tylenol/Motrin) when you are uncomfortable. If breast feeding: * Use breast milk to lubricate nipples. Lansinoh cream may be used for sore nipples. You do not need to remove cream prior to breast feeding. If using a different brand of cream, check the label for directions regarding removal of cream prior to nursing. * Wear a supportive bra. * If having problems with breasts or breast feeding, call a home energy consultant supervisor or your health care provider. OVER THE COUNTER MEDICATION: * For discomfort or pain, you may use Acetaminophen (Tylenol), Ibuprofen (Advil ), or Naproxen (Aleve) following the package directions. * For constipation you may use Colace following the package directions. SPECIAL CARE INSTRUCTIONS: When you are discharged from the hospital, it is important for you to follow the instructions listed below: * During the first week at home, you should be able to care for yourself and your baby. In addition, the usual light household activities are encouraged. * Limit your activities to the way you feel. Do not try to clean the house or move furniture. Be sensible. * If you actively engage in sports and have done so up until the time of your delivery, you may resume these activities as soon as you feel able. This may take up to one month or even longer. Use good judgment. * Continue to take your vitamins for at least six weeks after the of your baby. * Your diet need not be limited unless you were on a special diet before your delivery. Breast-feeding mothers need around 2500 calories per day and at least 64-80 ounces of fluid per day (8 to 10 glasses). * You should eat foods from the four major food groups. Crash diets or fad diets are to be avoided. Eating lean meats, fresh fruits and vegetables, low-fat dairy products, high fiber foods and a regular exercise program, will help you get back to your pre- weight without putting your health at risk. * Constipation is sometimes a problem after delivery. Take a mild laxative as needed. If breast feeding, Milk of Magnesia is acceptable to use. You may use a suppository or Fleets enema if no episiotomy. * A daily shower or tub bath is suggested. Be sure to thoroughly and gently dry the perineum. * A bloody vaginal discharge will usually continue until around four weeks post . A small amount of bleeding may continue for as long as six weeks. Vaginal discharge changes from the bright red bleeding after delivery to pink then brownish and finally yellowish-pink before becoming white and disappearing. * Bleeding may increase with activity. Your first period may come in 4-8 weeks. If you are breast feeding, your period may be delayed even longer. * [place] (sex) can begin whenever both you and your partner feel comfortable and do not have any form of genital infection. It is recommended that you wait at least six weeks for internal and external healing to occur. If you have questions, please talk to your health care practitioner. A condom should be used to prevent infection and . * Foreplay, gentle intercourse and lubrication is very important the first several times to prevent pain. A water-based lubricant such as K-Y jelly or Astroglide may be used. * Tampons and/or Douching should be avoided until after six weeks check-up. * If you have RH negative blood and your baby is RH positive, you will receive RHOGAM by injection prior to discharge. The nurse will give you a card to keep with you that has the date and place that you received RHOGAM after delivery. * During your care, you had a Rubella screen done to check for the presence of rubella antibodies in your blood. If your test was negative, you will receive a Rubella vaccine prior to discharge. This vaccine may cause a fever, soreness at the injection site and flu-like symptoms. If these symptoms persist, notify your health care practitioner. is not advised for three months after a Rubella vaccine. * Verbalizes understanding of car seat law as reviewed with patient nursing. * Car Seat hand-out given and reviewed with patient by nursing. * Shaken baby information reviewed with patient by nursing. Call you doctor if: * Heavy bleeding (saturating several pads an hour) or passing clots the size of your fist. * A fever >101 degrees F (38.3 degrees C) on two occasions four hours apart and /or chills. * Unusual pain in the pelvic or vaginal areas. Pain should improve each day . * Call the doctor for any increased redness, drainage or swelling around the incision and any pain unrelieved by prescribed pain medication. * Any signs or symptoms of phlebitis (possible blood clots forming in the veins ): leg pain, warm, red or swollen area on leg. * "Baby Blues" lasting longer than two weeks. If you have any questions or concerns, call your health care practitioner at . FOLLOW-UP VISIT: * Incision check (staple removal) in 1 week. Please call doctor's office at to set up appointment. * Please call the office at to schedule a 6 week examination. It is important you keep this appointment. * It is important for you to make arrangements for either yearly or twice yearly check-ups thereafter. . Current Hospital Diet Patient's current hospital diet: Regular OB Diet Discharge Diet Recommended Diet: Regular Diet Procedures Procedures Performed: Repeat Caesarean Section, twin gestation, preeclampsia 35.6 weeks for living female child at 1206 and living female child at 1207 Pending Studies Studies pending at discharge: no Medical Emergencies . Who to Call and When: Medical Emergencies: If at any time you feel your situation is an emergency, please call [phone] immediately. . Non-Emergent Contact Non-Emergency issues call your: Surgeon Call Non-Emergent contact if: temperature is above 100.5, temperature is above 101, wound has increased drainage, wound has increased redness, wound has increased pain . . "Provider Documentation" section prepared by Saman De La O. . VTE Core Measure Inpt VTE Proph given/why not?: Treatment not indicated
[2016-09-07 12:35] VITALS: BP_DIAS 90; PULSE 85; TEMP 36.5
--- NOTE | 2016-10-05 10:52 | Discharge Summary ---
Discharge Summary Date of Service September 07, 2016. Discharge Summary Date of admission Date of discharge 09/07/2016 Chief complaint patient is a 26-year-old with of 35 weeks and 6 days mono diamniotic twins. Patient's was complicated by Mild preeclampsia which became severe. She also had history of previous section. Patient was admitted on 09/03/2016 and underwent section . Surgery was unremarkable patient delivered two live in front females. Baby A was 2130 g with Apgars of 6/8. Baby B was 1935 g with Apgars 8 and 9. Details of surgery same day surgical records. Pediatric information is also Records as well. Surgery was unremarkable and patient did well postop and in recovery. On postoperative day 1 patient admitted all milestones and was able to tolerate ffod and medication by mouth.. She continued to improve postoperative day 2 and 3. she was placed on labetalol 200 mg 3 times a day to discharge.. Past medical history 1. history of scoliosis 2. history of depression. 3. History of ovarian cysts for history of condyloma. Past surgical history 1. dental surgery 2. 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 Allergies Sulpha drugs Family history is noncontributory. Social history patient denies tobacco, alcohol use. Review of system negative except as dictated in her history of present illness. Is Physical exam heart S1-S2 no abdomen rate Lungs clear to sedation bilaterally Abdomen nontender nondistended that positive bowel sounds incision clean dry and intact. This Pelvic examination unremarkable. Extremities no cyanosis clubbing or edema. Labs WBC is 9.9 hemoglobin is 11.5 hematocrit Plt; 133,000 Vitals on 09/07/2016 temperature 36 5 pulse 88 blood pressure 134/90 Condition on discharge stable. Operations repeat section. Discharge diagnoses 1 postoperative repeat section 2severe preeclampsia. Plan on discharge patient is discharged home with instructions regarding activity diet follow-up appointment and medications.
== END 2016-09-07 12:53 | disposition home or self-care (01) | DRG 765 ==
LOC: C.OPB 09:32 → C.LD 09:33 → C.OPB 12:24 → C.OBG 15:31
PROVIDERS: ADMIT Obstetrics & Gynecology; ATTEND Obstetrics & Gynecology
PROC: 10D00Z1 Extraction of Products of Conception, Low, Open Approach (ICD-10-PCS; principal; 2016-09-03 11:05)
DX: O14.14 Severe pre-eclampsia complicating childbirth (principal); O30.033 Twin pregnancy, monochorionic/diamniotic, third trimester; Z3A.35 35 weeks gestation of pregnancy; Z37.2 Twins, both liveborn